=== PATIENT | female | born 1945 | race Caucasian/White ===

== ENCOUNTER 2017-03-06 07:21 | Day surgery (SDC) | payer MEDICARE, OTHER ==
[2017-03-06] MEDS ORDERED: Lactated Ringers 1,000 ML IV SCH (07:30)
[2017-03-06] MEDS ORDERED: fentaNYL 100 MCG/2 ML SDV ONE (08:37)
[2017-03-06] MEDS ORDERED: Midazolam 1 MG/ML 2 ML SDV ONE (08:37)
[2017-03-06] MEDS ORDERED: Propofol 200 MG/20 ML SDV ONE (08:37)
[2017-03-06 09:19] VITALS: BP 140/72
--- NOTE | 2017-03-07 07:43 | OR ---
DATE OF PROCEDURE: 03/06/2017 PREOPERATIVE DIAGNOSIS: Blood in stool. POSTOPERATIVE DIAGNOSES: Diverticulosis; rectocele; blood in stool, etiology unknown. PROCEDURE: Colonoscopy to the cecum. SURGEON: Alex Abraham MD ANESTHESIA: IV anesthesia with monitored anesthesia care. INDICATION: This 71-year-old white female is referred for a colonoscopy because of blood in her stool. Her last colonoscopic exam was done about eight years ago. I counseled her for the procedure including risks and alternatives, and she gave her informed consent to proceed. DESCRIPTION OF PROCEDURE: The patient was placed in the left lateral decubitus position. IV anesthesia was administered by the Anesthesia Service. Time-out was held. A rectal exam was performed, which showed a rectocele. The flexible video Olympus colonoscope was introduced through her anus, up her rectum, and out her colon all thee way to the cecum. En route, we saw multiple left-sided diverticula. There was no bleeding or inflammation associated with any of them. Once the cecum was reached, the scope was slowly withdrawn examining the mucosa throughout. No additional mucosal abnormalities were noted. The scope was retroflexed in the rectum with the distal rectum appearing unremarkable. The scope was straightened and removed. She tolerated the procedure well. Alex Abraham MD /[id number] MTDD
== END 2017-03-06 10:07 ==
LOC: JP.SDS 07:21
PROVIDERS: ATTEND Surgery
DX: Z12.11 Encounter for screening for malignant neoplasm of colon (principal); K92.1 Melena; K57.30 Diverticulosis of large intestine without perforation or abscess without bleeding; N81.6 Rectocele; I12.0 Hypertensive chronic kidney disease with stage 5 chronic kidney disease or end stage renal disease; N18.9 Chronic kidney disease, unspecified; Z88.8 Allergy status to other drugs, medicaments and biological substances; Z88.5 Allergy status to narcotic agent
CPT/HCPCS: G0105; J2250; J2704; J3010; J7120

== ENCOUNTER 2021-02-13 07:13 | Day surgery (SDC) | payer MEDICARE, OTHER ==
[2021-02-13] MEDS ORDERED: fentaNYL 100 MCG/2 ML SDV ONE (07:30)
[2021-02-13] MEDS ORDERED: Propofol 200 MG/20 ML SDV ONE ×2 (07:31→08:45)
[2021-02-13] MEDS ORDERED: Midazolam 1 MG/ML 2 ML SDV ONE (07:31)
[2021-02-13] MEDS ORDERED: Dextrose 5%-Lactated Ringers 1,000 ML IV SCH (07:45)
[2021-02-13 09:50] VITALS: BP 127/76; PULSE 81
--- NOTE | 2021-02-20 12:27 | OR ---
DATE OF PROCEDURE: 02/13/2021 SURGEON: Pablo White MD PREOPERATIVE DIAGNOSIS: Recent rectal bleeding. POSTOPERATIVE DIAGNOSES: 1. Recent rectal bleeding associated with extensive left colonic diverticulosis. 2. Engorged mixed hemorrhoids (would be amenable to banding). PROCEDURE: Flexible colonoscopy. ANESTHESIA: IV sedation. INDICATION FOR PROCEDURE: This is a 75-year-old female presenting with some recent rectal bleeding. She was started on some Colace along with Dulcolax softeners. This seemed to be helping with some constipation issues, and she feels like she is having less rectal bleeding presently. Plan is to proceed with colonoscopy with biopsies and/or polypectomy as indicated. Potential risks including bleeding and perforation were discussed, and the patient wishes to proceed. DETAILS OF PROCEDURE: The patient was taken to the operating room, placed in a left lateral decubitus position. IV sedation was administered, after which the initial digital rectal exam was performed and was unremarkable. Colonoscope was then passed into the rectum with retroflexion revealing some engorged somewhat mixed hemorrhoids, none of these were actively bleeding. The upper end of these would be above the dentate line, so these would potentially be amenable to hemorrhoidal banding. Otherwise, the scope was eventually passed to the cecum. The prep was very good. There was quite extensive colonic diverticulosis with some narrowing and tortuosity of the sigmoid and descending colon as a result of that. Apart from that, there were no areas of colitis, and no areas of polyps or other signs of neoplasia. The scope was then withdrawn, the above findings reconfirmed, and the procedure then concluded. RECOMMENDATIONS: Repeat the colonoscopy in 5 years. The extent of diverticulosis made visualization of the entire mucosal surface of the stomach patchy in the area of the sigmoid and descending colon. Therefore, we would prefer to move up the next screening exam from 10 to 5 years. Otherwise, if she has persistent bleeding while still on the stool softeners, she is instructed to contact us at the clinic, and we will consider hemorrhoid banding. Pablo White MD /[id number]
== END 2021-02-13 10:00 | disposition home or self-care (01) ==
LOC: JP.SDS 07:13
PROVIDERS: ATTEND Surgery
DX: K57.31 Diverticulosis of large intestine without perforation or abscess with bleeding (principal); K59.00 Constipation, unspecified; K64.8 Other hemorrhoids; G47.33 Obstructive sleep apnea (adult) (pediatric); I10 Essential (primary) hypertension; K21.9 Gastro-esophageal reflux disease without esophagitis; Z88.5 Allergy status to narcotic agent; Z88.8 Allergy status to other drugs, medicaments and biological substances
CPT/HCPCS: 45378; J2250; J2704; J3010; J7121

== ENCOUNTER 2021-04-11 07:01 | Day surgery (SDC) | payer MEDICARE, OTHER ==
[~2021-04-11 07:01] MED LIST: Midazolam 1 MG/ML 2 ML SDV ONE; Propofol 200 MG/20 ML SDV ONE; fentaNYL 100 MCG/2 ML SDV ONE
[2021-04-11] MEDS ORDERED: Sodium Chloride 0.9% Irrigation 500 ML Container ONE (07:15)
[2021-04-11] MEDS ORDERED: Dextrose 5%-Lactated Ringers 1,000 ML IV SCH (07:30)
[2021-04-11] MEDS ORDERED: Acetaminophen 500 MG Tab PO ONE (09:09)
[2021-04-11 09:40] VITALS: BP 121/77; PULSE 77
--- NOTE | 2021-04-19 14:05 | OR ---
DATE OF PROCEDURE: 04/11/2021 SURGEON: Pablo White MD PREOPERATIVE DIAGNOSIS: Bleeding internal hemorrhoids. POSTOPERATIVE DIAGNOSIS: Bleeding internal hemorrhoids. OPERATIVE PROCEDURE: Diagnostic anoscopy with hemorrhoidal banding x2. ANESTHESIA: IV sedation. INDICATION FOR PROCEDURE: A 75-year-old presenting with some ongoing rectal bleeding. On recent colonoscopy, she was noted to have some engorged internal hemorrhoids. The plan is to proceed with a hemorrhoid banding. Potential risks including bleeding, infection, possible pain postoperatively, pain at the level of the band location were gone over, and the patient wishes to proceed. DETAILS OF PROCEDURE: The patient was taken to the operating room after preoperative enema and the anoscope was then passed into the rectum. Two engorged hemorrhoid columns were identified, and on each of these, bands were placed without difficulty. Second one was a little lower than optimal in terms of being more mixed hemorrhoid and the patient will likely have some discomfort related to that. Otherwise, no complications were noted. The procedure then concluded. The patient will be following up on a p.r.n. basis. Pablo White MD /[id number]
== END 2021-04-11 09:42 | disposition home or self-care (01) ==
LOC: JP.SDS 07:01
PROVIDERS: ATTEND Surgery
DX: K64.8 Other hemorrhoids (principal); I12.9 Hypertensive chronic kidney disease with stage 1 through stage 4 chronic kidney disease, or unspecified chronic kidney disease; N18.30 Chronic kidney disease, stage 3 unspecified; E66.9 Obesity, unspecified; Z68.36 Body mass index [BMI] 36.0-36.9, adult; Z88.6 Allergy status to analgesic agent; Z88.8 Allergy status to other drugs, medicaments and biological substances
CPT/HCPCS: 46221; A9270; J2250; J2704; J3010; J7121

== ENCOUNTER 2021-11-01 11:07 | Emergency (ER) | payer MEDICARE, OTHER ==
--- NOTE | 2021-11-01 11:40 | EDM.PDOC ---
ED HPI GENERAL MEDICAL PROBLEM - General Chief Complaint: Chest Pain Stated Complaint: FELL 10/27 AND NOW IS HAVING TROUBLE BREATHING Time Seen by Provider: 11/01/21 11:26 Source of Information: Reports: Patient, RN Notes Reviewed History Limitations: Reports: No Limitations - History of Present Illness INITIAL COMMENTS - FREE TEXT/NARRATIVE: 75-year-old female presents emergency department day complaint of chest pain she states she fell about 3 days ago initially was not bad does have some bruising but today suddenly does develop chest pain constant nature pain radiates up into her jaw on both sides does feel short of breath no nausea no diaphoresis has no cardiac history Middle Chest Pain Score (Numeric/FACES): 7 - Related Data Allergies Allergy/AdvReac Type Severity Reaction Status Date / Time morphine Allergy Cannot Verified 11/01/21 11:19 Remember NSAIDS (Non-Steroidal Allergy Other Verified 11/01/21 11:19 Anti-Inflamma Home Meds: Home Meds Acetaminophen [Tylenol Arthritis] 1,300 mg PO DAILY 03/04/17 [History] Aspirin 81 mg PO DAILY 03/04/17 [History] Cyclobenzaprine [Flexeril] 20 mg PO BEDTIME PRN 03/04/17 [History] DULoxetine HCl [Cymbalta] 60 mg PO DAILY 03/04/17 [History] Furosemide [Lasix] 80 mg PO DAILY 03/04/17 [History] Magnesium Gluconate 400 mg PO DAILY 03/04/17 [History] Metolazone [Zaroxolyn] 2.5 mg PO Q72H PRN 03/04/17 [History] Metoprolol Succinate [Toprol XL] 50 mg PO BID 03/04/17 [History] Omeprazole 40 mg PO DAILY 03/04/17 [History] Biotin 1 mg PO DAILY 02/10/21 [History] Calcium Carb/Vitamin D3/Vit K1 [Calcium + Vit D & K Chew] 1 each PO DAILY 02/10/21 [History] Oxybutynin Chloride [Ditropan Xl] 10 mg PO DAILY 02/10/21 [History] Diclofenac Sodium [Voltaren 1% Gel] 1 applic TOP QID PRN 04/06/21 [History] Acetaminophen/HYDROcodone [HYDROcodone-Acetaminophen 5-325 MG *] 1 tab PO TID PRN #10 each 11/01/21 [Rx] Past Medical History HEENT History: Reports: Allergic Rhinitis, Cataract, Impaired Vision Cardiovascular History: Reports: Hypertension Respiratory History: Reports: Pneumonia, Recurrent, Sleep Apnea Gastrointestinal History: Reports: Cholelithiasis, Chronic Constipation, GERD, O ther (See Below) Other Gastrointestinal History: history of gastric ulcers Genitourinary History: Reports: Renal Calculus, Other (See Below) Other Genitourinary History: kidney failure 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: Musculoskeletal History: Reports: Arthritis, Back Pain, Chronic, Neck Pain, Chronic, Osteoarthritis Neurological History: Reports: Other (See Below) Other Neuro History: 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, 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 Psychiatric History: Reports: Depression Endocrine/Metabolic History: Reports: Obesity/BMI 30+ Oncologic (Cancer) History: Reports: Basal Cell Carcinoma, Squamous Cell Carcinoma Dermatologic History: Reports: Other (See Below) Other Dermatologic History: basal cell and squamous cell skin cancer - Infectious Disease History Infectious Disease History: Reports: Chicken Pox, Measles, Mumps, Shingles - Past Surgical History HEENT Surgical History: Reports: Cataract Surgery, Oral Surgery, Other (See Below) Other HEENT Surgeries/Procedures: eye lid lift Cardiovascular Surgical History: Reports: None Respiratory Surgical History: Reports: None GI Surgical History: Reports: Cholecystectomy, Colonoscopy, EGD Female Surgical History: Reports: Breast Implant, Tubal Ligation, Other (See Below) Other Female Surgeries/Procedures: Breast implants removed; rectal prolapse repaired Endocrine Surgical History: Reports: None Neurological Surgical History: Reports: None Musculoskeletal Surgical History: Reports: Arthroscopic Knee, Knee Replacement, Shoulder Surgery, Other (See Below) Other Musculoskeletal Surgeries/Procedures:: Angel thumb arthroplasty Oncologic Surgical History: Reports: None Dermatological Surgical History: Reports: Skin Biopsy Social & Family History - Family History Family Medical History: No Pertinent Family History - Tobacco Use Tobacco Use Status *Q: Never Tobacco User - Caffeine Use Caffeine Use: Reports: Coffee - Recreational Drug Use Recreational Drug Use: No ED ROS GENERAL - Review of Systems Review Of Systems: See Below Constitutional: Reports: No Symptoms. Denies: Diaphoresis HEENT: Reports: No Symptoms Respiratory: Reports: Shortness of Breath Cardiovascular: Reports: Chest Pain GI/Abdominal: Reports: No Symptoms ED EXAM, GENERAL - Physical Exam Exam: See Below Exam Limited By: No Limitations General Appearance: Alert, WD/WN, No Apparent Distress Respiratory/Chest: No Respiratory Distress, Lungs Clear, Normal Breath Sounds, No Accessory Muscle Use, Chest Non-Tender Cardiovascular: Regular Rate, Rhythm, No Murmur GI/Abdominal: Soft, Non-Tender Extremities: Pedal Edema #1 Interpretation EKG Date: 11/01/21 Time: 11:39 Rhythm: NSR [place]: LAD-Left [place] Deviation P-Wave: Present QRS: RBBB ST-T: Normal QT: Normal Comparison: NA - No Prior EKG Course - Vital Signs Last Recorded V/S: Last Vital Signs Temp 97.6 F 11/01/21 11:16 Pulse 86 11/01/21 12:30 Resp 13 11/01/21 11:16 BP 137/73 11/01/21 12:30 Pulse Ox 93 L 11/01/21 12:30 - Orders/Labs/Meds Orders: Active Orders 24 hr Category Date Time Status Cardiac Monitoring [RC] .As Directed Care 11/01/21 11:35 Active Peripheral IV Care [RC] . DIRECTED Care 11/01/21 11:36 Active Sodium Chloride 0.9% [Saline Flush] Med 11/01/21 11:35 Active 10 ml FLUSH ASDIRECTED PRN Peripheral IV Insertion Adult [OM.PC] Stat Oth 11/01/21 11:35 Ordered Saline Lock Insert [OM.PC] Stat Oth 11/01/21 11:35 Ordered EKG 12 Lead [EK] Stat Ther 11/01/21 11:36 Ordered Medication Orders Sodium Chloride (Sodium Chloride 0.9% 10 Ml Syringe) 10 ml FLUSH ASDIRECTED PRN PRN Reason: Keep Vein Open Last Admin: 11/01/21 11:47 Dose: 10 ml Documented by: MARYCARMEN Labs: Laboratory Tests 11/01/21 11/01/21 Range/Units 11:45 11:45 WBC 9.3 (4.5-11.0) K/uL RBC 4.17 (3.30-5.50) M/uL Hgb 12.1 (12.0-15.0) g/dL Hct 38.0 (36.0-48.0) % MCV 91 (80-98) fL MCH 29 (27-31) pg MCHC 32 (32-36) % Plt Count 387 (150-400) K/uL Neut % (Auto) 72.1 H (36-66) % Lymph % (Auto) 14.4 L (24-44) % Steele % (Auto) 8.8 H (2-6) % Eos % (Auto) 4.1 H (2-4) % Baso % (Auto) 0.6 (0-1) % Sodium 133 L (140-148) mmol/L Potassium 3.7 (3.6-5.2) mmol/L Chloride 93 L (100-108) mmol/L Carbon Dioxide 29 (21-32) mmol/L Anion Gap 14.7 H (5.0-14.0) mmol/L BUN 18 (7-18) mg/dL Creatinine 1.2 H (0.6-1.0) mg/dL Est Cr Clr Drug Dosing 42.12 mL/min Estimated GFR (MDRD) 44 L (>60) Glucose 139 H (74-106) mg/dL Calcium 9.5 (8.5-10.1) mg/dL Total Bilirubin 0.5 (0.2-1.0) mg/dL AST 42 H (15-37) U/L ALT 43 (12-78) U/L Alkaline Phosphatase 75 (46-116) U/L Troponin I High Sens 8.9 (<=60.3) pg/mL Total Protein 7.3 (6.4-8.2) g/dL Albumin 3.5 (3.4-5.0) g/dL Globulin 3.8 H (2.3-3.5) g/dL Albumin/Globulin Ratio 0.9 L (1.2-2.2) Meds: Medications Generic Name Dose Route Start Last Admin Trade Name Freq PRN Reason Stop Dose Admin Sodium Chloride 10 ml 11/01/21 11:35 11/01/21 11:47 Sodium Chloride 0.9% 10 Ml Syringe FLUSH 10 ml ASDIRECTED PRN Administration Keep Vein Open Discontinued Medications Generic Name Dose Route Start Last Admin Trade Name Freq PRN Reason Stop Dose Admin Fentanyl 50 mcg 11/01/21 11:36 11/01/21 11:48 Fentanyl 100 Mcg/2 Ml Sdv IVPUSH 11/01/21 11:37 50 mcg ONETIME ONE Administration Departure - Departure Time of Disposition: 13:20 Disposition: Home, Self-Care 01 Condition: Fair Clinical Impression: Chest wall pain, Chest wall pain Instructions: Nonspecific Chest Pain, Adult Referrals: PCP,None [Primary Care Provider] - Forms: ED Department Discharge Additional Instructions: Use Tylenol for baseline pain control use the hydrocodone with Tylenol for breakthrough pain, please followup with your primary care provider in 3-5 days if not better, please call return to the emergency department with worsening of symptoms. Sepsis Event Note (ED) - Evaluation Sepsis Screening Result: No Definite Risk - Focused Exam Vital Signs: Vital Signs Temp Pulse Resp BP Pulse Ox 11/01/21 12:30 86 137/73 93 L 11/01/21 11:16 97.6 F 89 13 170/88 H 96 - My Orders Last 24 Hours: My Active Orders 11/01/21 11:35 Cardiac Monitoring [RC] .As Directed Sodium Chloride 0.9% [Saline Flush] 10 ml FLUSH ASDIRECTED PRN Peripheral IV Insertion Adult [OM.PC] Stat Saline Lock Insert [OM.PC] Stat 11/01/21 11:36 Peripheral IV Care [RC] . DIRECTED EKG 12 Lead [EK] Stat - Assessment/Plan Last 24 Hours: My Active Orders 11/01/21 11:35 Cardiac Monitoring [RC] .As Directed Sodium Chloride 0.9% [Saline Flush] 10 ml FLUSH ASDIRECTED PRN Peripheral IV Insertion Adult [OM.PC] Stat Saline Lock Insert [OM.PC] Stat 11/01/21 11:36 Peripheral IV Care [RC] . DIRECTED EKG 12 Lead [EK] Stat Plan: Assessment Acuity = acute Site and laterality = chest wall pain Etiology = secondary to fall Manifestations = none Location of injury = Home Lab values = CBC unremarkable CMP unremarkable other than creatinine elevated 1.2 consistent with chronic renal failure stage G3 B troponin was negative chest x-ray shows no acute process EKG shows no ST elevations or depressions Plan She received good relief from morphine provided in the ED talked about options including CT scan for further evaluation she elected to do watchful waiting we will try hydrocodone 5/325 1 tab p.o. 3 times daily. Geraldine total #10 faxed to [facility] pharmacy schedule follow-up with her primary care in the next 3 to 5 days for reevaluation This note was dictated using [employer] voice recognition software please call with any questions on syntax or grammar.
[2021-11-01] MEDS: Sodium Chloride 0.9% 10 ML Syringe FLUSH PRN (11:47)
[2021-11-01] MEDS: fentaNYL 100 MCG/2 ML SDV IVPUSH ONE (11:48)
--- NOTE | 2021-11-01 13:06 | CR ---
CHEST: Portable 11/01/2021 at 11:59 AM CLINICAL HISTORY:Chest pain COMPARISON:None FINDINGS: There is less than optimal inspiration which exaggerates lung markings and heart size. No effusions are seen. Impression: Poor inspiration exaggerates lung markings and heart size No acute cardio pelvic process seen
[2021-11-01 13:34] VITALS: PULSE 94
[2021-11-01 13:48] VITALS: BP 124/74
== END 2021-11-01 13:57 | disposition home or self-care (01) ==
LOC: JP.ED 11:07
DX: R07.89 Other chest pain (principal); I10 Essential (primary) hypertension; E66.9 Obesity, unspecified; K21.9 Gastro-esophageal reflux disease without esophagitis; Z68.36 Body mass index [BMI] 36.0-36.9, adult; Z88.5 Allergy status to narcotic agent; Z88.8 Allergy status to other drugs, medicaments and biological substances; Z79.899 Other long term (current) drug therapy; Z72.0 Tobacco use
CPT/HCPCS: 36415; 71045; 80053; 84484; 85025; 93005; 96374; 99285; J3010

== ENCOUNTER 2022-01-22 13:59 | Emergency (ER) | payer MEDICARE, OTHER ==
[2022-01-22 14:27] VITALS: BP 166/93; PULSE 90
[2022-01-22] MEDS ORDERED: Alum Hydrox/Mag Hydrox/Simeth 15 ML, Lidocaine 2% 15 ML PO ONE ×2 (14:42)
== END 2022-01-22 15:54 | disposition home or self-care (01) ==
LOC: JP.ED 13:59
DX: R07.89 Other chest pain (principal); I10 Essential (primary) hypertension; K21.9 Gastro-esophageal reflux disease without esophagitis; E66.9 Obesity, unspecified; Z68.34 Body mass index [BMI] 34.0-34.9, adult; Z88.5 Allergy status to narcotic agent; Z88.8 Allergy status to other drugs, medicaments and biological substances; Z79.82 Long term (current) use of aspirin; Z79.899 Other long term (current) drug therapy
CPT/HCPCS: 36415; 71046; 71046-26; 84484; 93005; 99282; 99284-25; A9270-GY

== ENCOUNTER 2022-07-06 07:53 | Day surgery (SDC) | payer MEDICARE, OTHER ==
[2022-07-06] MEDS ORDERED: Sodium Chloride 0.9% 1,000 ML IV SCH (09:00)
[2022-07-06] MEDS ORDERED: fentaNYL 100 MCG/2 ML SDV ONE (09:19)
[2022-07-06] MEDS ORDERED: Propofol 200 MG/20 ML SDV ONE (09:19)
[2022-07-06] MEDS ORDERED: Midazolam 1 MG/ML 2 ML SDV ONE (09:19)
[2022-07-06 11:32] VITALS: BP 132/80; PULSE 78
== END 2022-07-06 11:35 | disposition home or self-care (01) ==
LOC: JP.SDS 07:53
PROVIDERS: ATTEND Surgery
DX: K21.00 Gastro-esophageal reflux disease with esophagitis, without bleeding (principal); K31.A0 Gastric intestinal metaplasia, unspecified; K22.89 Other specified disease of esophagus; I12.9 Hypertensive chronic kidney disease with stage 1 through stage 4 chronic kidney disease, or unspecified chronic kidney disease; N18.30 Chronic kidney disease, stage 3 unspecified; D63.1 Anemia in chronic kidney disease; E66.01 Morbid (severe) obesity due to excess calories; M19.90 Unspecified osteoarthritis, unspecified site; Z68.35 Body mass index [BMI] 35.0-35.9, adult; Z79.899 Other long term (current) drug therapy; Z79.83 Long term (current) use of bisphosphonates; Z88.6 Allergy status to analgesic agent
CPT/HCPCS: 43239; J2704; J3010; J7030; 88305; J2250